=== PATIENT | female | born 1975 | race Caucasian/White ===

== ENCOUNTER 2025-10-11 20:23 | Emergency (ER) | payer MEDICAID ==
[~2025-10-11] VITALS: Ht 157.5 cm; Wt 66.0 kg
[2025-10-11 20:31] VITALS: O2SAT 98
[2025-10-11 21:00] VITALS: TEMP 36.6
[2025-10-11] MEDS: KETOROLAC 15MG/ML VIAL IV ONE (21:00)
[2025-10-11] MEDS: SODIUM CHLORIDE 0.9% 1,000 ML IV ONE (21:00)
[2025-10-11 21:51] LABS: BASOPHILS % 0.5 % (0.0-2.0); EOSINOPHILS % 4.1 % (0.0-5.0); HEMATOCRIT. 42.8 % (36.0-48.0); HEMOGLOBIN. 14.1 g/dL (12.0-16.0); LYMPHOCYTES % 26.9 % (20.0-50.0); MEAN PLATELET VOLUME 8.9 fl (7.4-10.4); MONOCYTES % 4.5 % (2.0-8.0); NEUTROPHILS % 64.0 % (40.0-76.0); PLATELET 257 x1000/uL (130-400); RED BLOOD CELL COUNT 4.93 mill/uL (4.2-5.4); RED CELL DISTRIBUTION WIDTH 13.6 % (11.6-14.6)
[2025-10-11 22:05] LABS: CREATININE 0.7 mg/dL (0.6-1.0)
[2025-10-11 22:06] LABS: UREA NITROGEN BLOOD 9 mg/dL (9-23)
[2025-10-11 22:07] LABS: ASPARTATE AMINOTRANSFERASE 15 IU/L (<34)
[2025-10-11 22:08] LABS: BILIRUBIN DIRECT < 0.1 mg/dL (<=3.0); BILIRUBIN TOTAL 0.2 mg/dL (0.1-1.0); HCG SCREEN NEGATIVE; PROTEIN TOTAL 6.7 g/dL (6.0-8.3)
[2025-10-11 22:37] LABS: CLARITY URINE CLOUDY (CLEAR); COLOR URINE YELLOW (YELLOW); GLUCOSE URINE NEGATIVE (NEGATIVE); KETONES URINE NEGATIVE (NEGATIVE); LEUKOCYTE ESTERASE URINE 2+ (NEGATIVE); NITRITE URINE NEGATIVE (NEGATIVE); OCCULT BLOOD URINE TRACE (NEGATIVE); PH URINE 8.5 (4.5-8.0); PROTEIN URINE NEGATIVE (NEGATIVE); SPECIFIC GRAVITY URINE 1.017 (1.005-1.030); UROBILINOGEN URINE 1.0 E.U./dL (0.2-1.0)
[2025-10-11 22:55] LABS: SQUAMOUS EPITHELIAL CELL URINE 2+ /lpf (RARE/1+)
[2025-10-11 22:56] LABS: BACTERIA URINE 2+; RBC URINE 15-25 /hpf (0-2); WBC URINE 25-50 /hpf (0-2)
[2025-10-12] MEDS: LIDOCAINE HCL 1% 20ML VIAL INFIL ONE (01:13)
[2025-10-12] MEDS ORDERED: METR-167 MT (01:17)
[2025-10-12] MEDS ORDERED: DOXY100C5 MT (01:17)
[2025-10-12] MEDS ORDERED: CEPH500T MT (01:17)
[2025-10-12] MEDS: DOXYCYCLINE HYCLATE 100MG CAPSULE PO ONE (01:52)
[2025-10-12] MEDS: METRONIDAZOLE 500MG TABLET PO ONE (01:52)
[2025-10-12] MEDS: CEFTRIAXONE SODIUM 1G VIAL IM ONE (01:52)
[2025-10-12 04:59] VITALS: BP 132/85; PULSE 71; RESP 13; O2SAT 97
[2025-10-15 04:12] LABS: CHLAMYDIA TRACHOMATIS NAA Negative (Negative); NEISSERIA GONORRHOEAE NAA Negative (Negative)
== END 2025-10-12 05:01 | disposition home or self-care (01) ==
LOC: ER 20:23 → CMPBEDREQ 10-12 08:04
DX: N60.02 Solitary cyst of left breast (principal); D25.9 Leiomyoma of uterus, unspecified; N39.0 Urinary tract infection, site not specified; Z87.442 Personal history of urinary calculi
CPT/HCPCS: 80076; 80048; 81003; 81025; 84703; 83690; 85025; 87086; 87186; 87077; 36415; 71045; 74176; 76641; 99285; 87491; 87591; 87210; 76830; 76856; 93005; 96372; J7030; J0696; J2003; Z7610